=== PATIENT | male | born 1965 | race Caucasian/White ===

== ENCOUNTER → 2017-10-20 15:07 | Outpatient (REF) | payer MEDICAID, SELFPAY ==
[2017-10-20 17:36] LABS: Amphetamine/Metha Screen,Urine Negative ng/mL (<1000); Barbiturates Screen,Urine Negative ng/mL (<200); Benzodiazepines Screen,Urine Negative ng/mL (200); Cannabinoid Screen,Urine Positive ng/mL (<50); Cocaine Screen,Urine Negative ng/g (<300); Methadone Screen,Urine Negative ng/mL (<300); Opiate Screen,Urine Positive ng/mL (<300); Phencyclidine Screen,Urine Negative ng/mL (<25)
== END ==
LOC: LAB 15:07
PROVIDERS: Visit Provider Emergency Medicine
DX: Z79.899 Other long term (current) drug therapy (principal)
CPT/HCPCS: 80305

== ENCOUNTER → 2017-11-04 13:49 | Outpatient (CLI) | payer MEDICAID, SELFPAY ==
--- NOTE | 2017-11-04 13:51 | XR_ITS ---
XR hip LT 2-3V w/pelvis HISTORY: Left hip pain ITS.REASON: Hip Pain ORDERING PHYSICIAN: Jaxson Iniguez MD PATIENT AGE: 51 years COMPARISON: None FINDINGS: No fracture or dislocation is evident. No significant degenerative change. No lytic or blastic change. Unremarkable soft tissues. There is minimal sclerosis of the SI joint on the left superiorly IMPRESSION: 1. Negative left hip. 2. Minimal sclerosis left SI joint superiorly
--- NOTE | 2017-11-04 13:51 | MR_ITS ---
MR lumbar spine wo con, MR 3-d myelogram/MRCP HISTORY: Low back pain with left-sided sciatica, left lower extremity pain radiating to the foot ORDERING PHYSICIAN: Jaxson Iniguez MD PATIENT AGE: 51 years COMPARISON: 06/05/2014 TECHNIQUE: Standard multiplanar multiecho sequences are performed without contrast. 3-D MIP and myelographic images are also rendered and reviewed FINDINGS: There is normal alignment. There is slight reversal of the lumbar lordosis. The spinal cord ends at the L1 level. There is multilevel thoracic and lumbar spondylosis. T11-T12, T12-L1: Mild degenerative disc disease. L1-L2: Degenerative disc disease with bulging disc eccentric to the left with mild left-sided foraminal narrowing L2-L3: Degenerative disc disease with mild bulging disc. L3-L4: Degenerative disc disease with bulging disc and facet and ligamentum flavum hypertrophy with moderate bilateral foraminal narrowing greater on the right. There is borderline narrowing of the canal. L4-5: Degenerative disc disease with bulging disc slightly eccentric toward the right. Is bilateral foraminal narrowing slightly greater on the right. Facet and ligamentum hypertrophy also present. There is narrowing of the canal at this level at 10 mm. L5-S1: Mild bulging disc slightly eccentric towards the left with facet hypertrophic change with moderate bilateral foraminal narrowing slightly greater on the left. IMPRESSION: 1. Multilevel lumbar spondylosis as detailed above with degenerative disc disease, bulging disc, and facet and ligamentum flavum hypertrophy with resultant foraminal narrowing .. Please see above for detailed description at each level. There is narrowing of the canal at L4-5. 2. No disc herniation. 3. No significant change from 06/05/2014
== END ==
PROVIDERS: Family Provider Emergency Medicine; PCP Emergency Medicine; Visit Provider Emergency Medicine
DX: M25.552 Pain in left hip (principal); M54.42 Lumbago with sciatica, left side; G89.29 Other chronic pain
CPT/HCPCS: 72148; 73502; 76376

== ENCOUNTER → 2017-12-14 15:30 | Outpatient (REF) | payer MEDICAID, SELFPAY ==
[2017-12-14 20:08] LABS: Amphetamine/Metha Screen,Urine Negative ng/mL (<1000); Barbiturates Screen,Urine Negative ng/mL (<200); Benzodiazepines Screen,Urine Negative ng/mL (200); Cannabinoid Screen,Urine Positive ng/mL (<50); Cocaine Screen,Urine Negative ng/g (<300); Methadone Screen,Urine Negative ng/mL (<300); Opiate Screen,Urine Negative ng/mL (<300); Phencyclidine Screen,Urine Negative ng/mL (<25)
== END ==
LOC: LAB 15:30
PROVIDERS: Visit Provider Emergency Medicine
DX: Z79.899 Other long term (current) drug therapy (principal)
CPT/HCPCS: 80305

== ENCOUNTER → 2018-01-11 15:48 | Outpatient (REF) | payer MEDICAID, SELFPAY ==
[2018-01-11 20:49] LABS: Amphetamine/Metha Screen,Urine Negative ng/mL (<1000); Barbiturates Screen,Urine Negative ng/mL (<200); Benzodiazepines Screen,Urine Negative ng/mL (200); Cannabinoid Screen,Urine Positive ng/mL (<50); Cocaine Screen,Urine Negative ng/g (<300); Methadone Screen,Urine Negative ng/mL (<300); Opiate Screen,Urine Positive ng/mL (<300); Phencyclidine Screen,Urine Negative ng/mL (<25)
== END ==
LOC: LAB 15:48
PROVIDERS: Visit Provider Emergency Medicine
DX: Z79.899 Other long term (current) drug therapy (principal)
CPT/HCPCS: 80305

== ENCOUNTER → 2018-02-07 15:10 | Outpatient (REF) | payer MEDICAID, SELFPAY ==
[2018-02-07 18:19] LABS: Amphetamine/Metha Screen,Urine Negative ng/mL (<1000); Barbiturates Screen,Urine Negative ng/mL (<200); Benzodiazepines Screen,Urine Positive ng/mL (200); Cannabinoid Screen,Urine Positive ng/mL (<50); Cocaine Screen,Urine Negative ng/g (<300); Methadone Screen,Urine Negative ng/mL (<300); Opiate Screen,Urine Negative ng/mL (<300); Phencyclidine Screen,Urine Negative ng/mL (<25)
== END ==
LOC: LAB 15:10
PROVIDERS: Visit Provider Emergency Medicine
DX: Z79.899 Other long term (current) drug therapy (principal)
CPT/HCPCS: 80305

== ENCOUNTER → 2018-03-13 15:44 | Outpatient (REF) | payer MEDICAID, SELFPAY ==
[2018-03-13 21:52] LABS: Amphetamine/Metha Screen,Urine Negative ng/mL (<1000); Barbiturates Screen,Urine Negative ng/mL (<200); Benzodiazepines Screen,Urine Positive ng/mL (200); Cannabinoid Screen,Urine Positive ng/mL (<50); Cocaine Screen,Urine Negative ng/g (<300); Methadone Screen,Urine Negative ng/mL (<300); Opiate Screen,Urine Negative ng/mL (<300); Phencyclidine Screen,Urine Negative ng/mL (<25)
== END ==
LOC: LAB 15:44
PROVIDERS: Visit Provider Emergency Medicine
DX: Z79.899 Other long term (current) drug therapy (principal)
CPT/HCPCS: 80305

== ENCOUNTER → 2018-04-10 14:56 | Outpatient (REF) | payer MEDICAID, SELFPAY ==
[2018-04-10 19:31] LABS: Amphetamine/Metha Screen,Urine Negative ng/mL (<1000); Barbiturates Screen,Urine Negative ng/mL (<200); Benzodiazepines Screen,Urine Positive ng/mL (<200); Cannabinoid Screen,Urine Positive ng/mL (<50); Cocaine Screen,Urine Negative ng/mL (<300); Methadone Screen,Urine Negative ng/mL (<300); Opiate Screen,Urine Negative ng/mL (<300); Phencyclidine Screen,Urine Negative ng/mL (<25)
== END ==
LOC: LAB 14:56
PROVIDERS: Visit Provider Emergency Medicine
DX: Z79.899 Other long term (current) drug therapy (principal)
CPT/HCPCS: 80305

== ENCOUNTER → 2018-05-01 13:52 | Outpatient (REF) | payer MEDICAID, SELFPAY ==
[2018-05-01 17:43] LABS: Amphetamine/Metha Screen,Urine Negative ng/mL (<1000); Barbiturates Screen,Urine Negative ng/mL (<200); Benzodiazepines Screen,Urine Positive ng/mL (<200); Cannabinoid Screen,Urine Positive ng/mL (<50); Cocaine Screen,Urine Negative ng/mL (<300); Methadone Screen,Urine Negative ng/mL (<300); Opiate Screen,Urine Negative ng/mL (<300); Phencyclidine Screen,Urine Negative ng/mL (<25)
== END ==
LOC: LAB 13:52
PROVIDERS: Visit Provider Emergency Medicine
DX: Z79.899 Other long term (current) drug therapy (principal)
CPT/HCPCS: 80305

== ENCOUNTER → 2018-05-31 13:33 | Outpatient (REF) | payer MEDICAID, SELFPAY ==
[2018-05-31 19:30] LABS: Amphetamine/Metha Screen,Urine Negative ng/mL (<1000); Barbiturates Screen,Urine Negative ng/mL (<200); Benzodiazepines Screen,Urine Negative ng/mL (<200); Cannabinoid Screen,Urine Negative ng/mL (<50); Cocaine Screen,Urine Negative ng/mL (<300); Methadone Screen,Urine Negative ng/mL (<300); Opiate Screen,Urine Positive ng/mL (<300); Phencyclidine Screen,Urine Negative ng/mL (<25)
== END ==
LOC: LAB 13:33
PROVIDERS: Visit Provider Emergency Medicine
DX: Z79.899 Other long term (current) drug therapy (principal)
CPT/HCPCS: 80305

== ENCOUNTER → 2018-06-28 15:37 | Outpatient (REF) | payer MEDICAID, SELFPAY ==
[2018-06-28 18:26] LABS: Amphetamine/Metha Screen,Urine Negative ng/mL (<1000); Barbiturates Screen,Urine Negative ng/mL (<200); Benzodiazepines Screen,Urine Positive ng/mL (<200); Cannabinoid Screen,Urine Positive ng/mL (<50); Cocaine Screen,Urine Negative ng/mL (<300); Methadone Screen,Urine Negative ng/mL (<300); Opiate Screen,Urine Positive ng/mL (<300); Phencyclidine Screen,Urine Negative ng/mL (<25)
== END ==
LOC: LAB 15:37
PROVIDERS: Visit Provider Emergency Medicine
DX: Z79.899 Other long term (current) drug therapy (principal)
CPT/HCPCS: 80305

== ENCOUNTER → 2018-07-25 15:22 | Outpatient (CLI) | payer MEDICAID, SELFPAY | PROVIDERS: Visit Provider Emergency Medicine | DX: Z79.899 Other long term (current) drug therapy (principal) ==

== ENCOUNTER → 2018-08-25 17:52 | Outpatient (CLI) | payer MEDICAID, SELFPAY ==
[2018-08-25 19:36] LABS: Amphetamine/Metha Screen,Urine Negative ng/mL (<1000); Barbiturates Screen,Urine Negative ng/mL (<200); Benzodiazepines Screen,Urine Positive ng/mL (<200); Cannabinoid Screen,Urine Positive ng/mL (<50); Cocaine Screen,Urine Negative ng/mL (<300); Methadone Screen,Urine Negative ng/mL (<300); Opiate Screen,Urine Positive ng/mL (<300); Phencyclidine Screen,Urine Negative ng/mL (<25)
== END ==
PROVIDERS: Visit Provider Emergency Medicine
DX: Z79.899 Other long term (current) drug therapy (principal)
CPT/HCPCS: 80305

== ENCOUNTER → 2018-09-25 18:40 | Outpatient (CLI) | payer MEDICAID, SELFPAY ==
[2018-09-25 19:23] LABS: Amphetamine/Metha Screen,Urine Negative ng/mL (<1000); Barbiturates Screen,Urine Negative ng/mL (<200); Benzodiazepines Screen,Urine Negative ng/mL (<200); Cannabinoid Screen,Urine Positive ng/mL (<50); Cocaine Screen,Urine Negative ng/mL (<300); Methadone Screen,Urine Negative ng/mL (<300); Opiate Screen,Urine Negative ng/mL (<300); Phencyclidine Screen,Urine Negative ng/mL (<25)
[2018-10-04 12:11] LABS: Alprazolam Negative (Cutoff=100); Benzodiazepines Positive ng/mL (Cutoff=100); Clonazepam Positive (.); Flurazepam Negative (Cutoff=100); Lorazepam Negative (Cutoff=100); Midazolam Negative (Cutoff=100); Temazepam Negative (Cutoff=100); Triazolam Negative (Cutoff=100)
[2018-10-05 06:48] LABS: Clonazepam Confirm 196 ng/mL (Cutoff=100); Opiates Negative (Cutoff=100)
== END ==
PROVIDERS: Visit Provider Emergency Medicine
DX: Z79.899 Other long term (current) drug therapy (principal)
CPT/HCPCS: 80305; 80346; 80361; 80365; G0480

== ENCOUNTER → 2018-10-25 19:22 | Outpatient (CLI) | payer MEDICAID, SELFPAY ==
[2018-10-25 20:30] LABS: Amphetamine/Metha Screen,Urine Negative ng/mL (<1000); Barbiturates Screen,Urine Negative ng/mL (<200); Benzodiazepines Screen,Urine Positive ng/mL (<200); Cannabinoid Screen,Urine Positive ng/mL (<50); Cocaine Screen,Urine Negative ng/mL (<300); Methadone Screen,Urine Negative ng/mL (<300); Opiate Screen,Urine Positive ng/mL (<300); Phencyclidine Screen,Urine Negative ng/mL (<25)
== END ==
PROVIDERS: Visit Provider Emergency Medicine
DX: Z79.899 Other long term (current) drug therapy (principal)
CPT/HCPCS: 80305

== ENCOUNTER → 2018-12-20 17:05 | Outpatient (CLI) | payer MEDICAID, SELFPAY ==
[2018-12-20 18:26] LABS: Amphetamine/Metha Screen,Urine Negative ng/mL (<1000); Barbiturates Screen,Urine Negative ng/mL (<200); Benzodiazepines Screen,Urine Positive ng/mL (<200); Cannabinoid Screen,Urine Positive ng/mL (<50); Cocaine Screen,Urine Negative ng/mL (<300); Methadone Screen,Urine Negative ng/mL (<300); Opiate Screen,Urine Negative ng/mL (<300); Phencyclidine Screen,Urine Negative ng/mL (<25)
[2018-12-27 11:19] LABS: Oxycodone (GC/MS) 1256 ng/mL (Cutoff=100)
[2018-12-27 12:20] LABS: Opiates Negative (Cutoff=100); Oxymorphone (GC/MS) 215 ng/mL (Cutoff=100)
== END ==
PROVIDERS: Visit Provider Emergency Medicine
DX: M54.9 Dorsalgia, unspecified (principal); Z79.899 Other long term (current) drug therapy
CPT/HCPCS: 80305; 80361; 80365; G0480

== ENCOUNTER → 2019-02-14 17:26 | Outpatient (CLI) | payer MEDICAID, SELFPAY ==
[2019-02-14 18:44] LABS: Amphetamine/Metha Screen,Urine Negative ng/mL (<1000); Barbiturates Screen,Urine Negative ng/mL (<200); Benzodiazepines Screen,Urine Positive ng/mL (<200); Cannabinoid Screen,Urine Positive ng/mL (<50); Cocaine Screen,Urine Negative ng/mL (<300); Methadone Screen,Urine Negative ng/mL (<300); Opiate Screen,Urine Positive ng/mL (<300); Phencyclidine Screen,Urine Negative ng/mL (<25)
== END ==
PROVIDERS: Visit Provider Emergency Medicine
DX: Z79.899 Other long term (current) drug therapy (principal)
CPT/HCPCS: 80305

== ENCOUNTER → 2019-04-13 17:54 | Outpatient (CLI) | payer MEDICAID, SELFPAY ==
[2019-04-13 20:29] LABS: Amphetamine/Metha Screen,Urine Negative ng/mL (<1000); Barbiturates Screen,Urine Negative ng/mL (<200); Benzodiazepines Screen,Urine Positive ng/mL (<200); Cannabinoid Screen,Urine Positive ng/mL (<50); Cocaine Screen,Urine Negative ng/mL (<300); Methadone Screen,Urine Negative ng/mL (<300); Opiate Screen,Urine Negative ng/mL (<300); Phencyclidine Screen,Urine Negative ng/mL (<25)
[2019-04-20 03:36] LABS: Oxycodone Positive (.); Oxymorphone Positive (.)
[2019-04-20 06:36] LABS: Oxycodone Confirm 1405 ng/mL (Cutoff=100); Oxymorphone Confirm 426 ng/mL (Cutoff=100)
== END ==
PROVIDERS: Visit Provider Emergency Medicine
DX: Z79.899 Other long term (current) drug therapy (principal)
CPT/HCPCS: 80305; 80365

== ENCOUNTER → 2019-06-13 17:45 | Outpatient (CLI) | payer MEDICAID, SELFPAY ==
[2019-06-13 19:57] LABS: Amphetamine/Metha Screen,Urine Negative ng/mL (<1000); Barbiturates Screen,Urine Negative ng/mL (<200); Benzodiazepines Screen,Urine Positive ng/mL (<200); Cannabinoid Screen,Urine Positive ng/mL (<50); Cocaine Screen,Urine Negative ng/mL (<300); Methadone Screen,Urine Negative ng/mL (<300); Opiate Screen,Urine Positive ng/mL (<300); Phencyclidine Screen,Urine Negative ng/mL (<25)
== END ==
PROVIDERS: Visit Provider Emergency Medicine
DX: Z79.899 Other long term (current) drug therapy (principal)
CPT/HCPCS: 80305

== ENCOUNTER → 2019-08-13 17:14 | Outpatient (CLI) | payer MEDICAID, SELFPAY ==
[2019-08-13 19:42] LABS: Amphetamine/Metha Screen,Urine Negative ng/mL (<1000); Barbiturates Screen,Urine Negative ng/mL (<200); Benzodiazepines Screen,Urine Positive ng/mL (<200); Cannabinoid Screen,Urine Positive ng/mL (<50); Cocaine Screen,Urine Negative ng/mL (<300); Methadone Screen,Urine Negative ng/mL (<300); Opiate Screen,Urine Negative ng/mL (<300); Phencyclidine Screen,Urine Negative ng/mL (<25)
[2019-08-22 10:10] LABS: Alprazolam Negative (Cutoff=100); Benzodiazepines Positive ng/mL (Cutoff=100); Clonazepam Positive (.); Flurazepam Negative (Cutoff=100); Lorazepam Negative (Cutoff=100); Midazolam Negative (Cutoff=100); Oxycodone Positive (.); Oxymorphone Positive (.); Temazepam Negative (Cutoff=100); Triazolam Negative (Cutoff=100)
[2019-08-22 12:19] LABS: Clonazepam Confirm 206 ng/mL (Cutoff=100); Oxycodone Confirm 455 ng/mL (Cutoff=100); Oxymorphone Confirm 352 ng/mL (Cutoff=100)
== END ==
PROVIDERS: Visit Provider Emergency Medicine
DX: Z79.899 Other long term (current) drug therapy (principal)
CPT/HCPCS: 80305; 80346; 80365

== ENCOUNTER → 2019-12-07 17:04 | Outpatient (CLI) | payer MEDICAID, SELFPAY ==
[2019-12-07 18:22] LABS: Amphetamine/Metha Screen,Urine Negative ng/ml (<1000); Barbiturates Screen,Urine Negative ng/ml (<200)
[2019-12-07 18:23] LABS: Benzodiazepines Screen,Urine Positive ng/ml (<200)
[2019-12-07 18:24] LABS: Cannabinoid Screen,Urine Positive ng/ml (<50); Cocaine Screen,Urine Negative ng/ml (<300)
[2019-12-07 18:25] LABS: Methadone Screen,Urine Negative ng/ml (<300); Opiate Screen,Urine Positive ng/ml (<300)
[2019-12-07 18:26] LABS: Phencyclidine Screen,Urine Negative ng/ml (<25)
== END ==
PROVIDERS: Visit Provider Emergency Medicine
DX: Z79.899 Other long term (current) drug therapy (principal)
CPT/HCPCS: 80305

== ENCOUNTER → 2021-01-07 17:40 | Outpatient (CLI) | payer MEDICAID, SELFPAY ==
[2021-01-07 18:23] LABS: Barbiturates Screen,Urine Negative ng/ml (<200)
[2021-01-07 18:25] LABS: Amphetamine/Metha Screen,Urine Negative ng/ml (<1000); Benzodiazepines Screen,Urine Positive ng/ml (<200)
[2021-01-07 18:26] LABS: Cannabinoid Screen,Urine Positive ng/ml (<50)
[2021-01-07 18:27] LABS: Cocaine Screen,Urine Negative ng/ml (<300); Methadone Screen,Urine Negative ng/ml (<300)
[2021-01-07 18:28] LABS: Opiate Screen,Urine Positive ng/ml (<300)
[2021-01-07 18:29] LABS: Phencyclidine Screen,Urine Negative ng/ml (<25)
== END ==
PROVIDERS: Visit Provider Emergency Medicine
DX: Z79.899 Other long term (current) drug therapy (principal); S51.002A Unspecified open wound of left elbow, initial encounter; L03.90 Cellulitis, unspecified
CPT/HCPCS: 80305; 87070; 87077; 87186; 87205

== ENCOUNTER → 2021-03-03 18:48 | Outpatient (CLI) | payer MEDICAID, SELFPAY ==
[2021-03-03 19:33] LABS: Benzodiazepines Screen,Urine Negative ng/ml (<200)
[2021-03-03 19:34] LABS: Amphetamine/Metha Screen,Urine Negative ng/ml (<1000); Barbiturates Screen,Urine Negative ng/ml (<200)
[2021-03-03 19:35] LABS: Cannabinoid Screen,Urine Positive ng/ml (<50)
[2021-03-03 19:36] LABS: Cocaine Screen,Urine Negative ng/ml (<300); Methadone Screen,Urine Negative ng/ml (<300)
[2021-03-03 19:37] LABS: Opiate Screen,Urine Negative ng/ml (<300)
[2021-03-03 19:38] LABS: Phencyclidine Screen,Urine Negative ng/ml (<25)
== END ==
PROVIDERS: Visit Provider Emergency Medicine
DX: Z79.899 Other long term (current) drug therapy (principal)
CPT/HCPCS: 80305

== ENCOUNTER → 2021-04-29 17:14 | Outpatient (CLI) | payer MEDICAID, SELFPAY ==
[2021-04-30 00:10] LABS: Amphetamine/Metha Screen,Urine Negative ng/ml (<1000); Barbiturates Screen,Urine Negative ng/ml (<200); Benzodiazepines Screen,Urine Negative ng/ml (<200); Cannabinoid Screen,Urine Positive ng/ml (<50); Cocaine Screen,Urine Negative ng/ml (<300); Methadone Screen,Urine Negative ng/ml (<300); Opiate Screen,Urine Positive ng/ml (<300); Phencyclidine Screen,Urine Negative ng/ml (<25)
== END ==
PROVIDERS: Visit Provider Emergency Medicine
DX: Z79.899 Other long term (current) drug therapy (principal)
CPT/HCPCS: 80305

== ENCOUNTER → 2021-06-24 17:31 | Outpatient (CLI) | payer MEDICARE, MEDICAID, SELFPAY ==
[2021-06-24 20:52] LABS: Amphetamine/Metha Screen,Urine Negative ng/ml (<1000)
[2021-06-24 20:53] LABS: Barbiturates Screen,Urine Negative ng/ml (<200); Cannabinoid Screen,Urine Positive ng/ml (<50)
[2021-06-24 20:54] LABS: Benzodiazepines Screen,Urine Negative ng/ml (<200)
[2021-06-24 20:55] LABS: Cocaine Screen,Urine Negative ng/ml (<300); Methadone Screen,Urine Negative ng/ml (<300)
[2021-06-24 20:56] LABS: Opiate Screen,Urine Negative ng/ml (<300)
[2021-06-24 20:58] LABS: Phencyclidine Screen,Urine Negative ng/ml (<25)
== END ==
PROVIDERS: Visit Provider Emergency Medicine
DX: M47.816 Spondylosis without myelopathy or radiculopathy, lumbar region (principal)
CPT/HCPCS: 80305

== ENCOUNTER → 2021-07-09 12:06 | Outpatient (CLI) | payer MEDICARE, MEDICAID, SELFPAY | PROVIDERS: PCP Emergency Medicine; Visit Provider Internal Medicine Cardiovascular Disease | DX: R06.00 Dyspnea, unspecified (principal); R42 Dizziness and giddiness; R00.0 Tachycardia, unspecified; I10 Essential (primary) hypertension; J44.9 Chronic obstructive pulmonary disease, unspecified; Z72.0 Tobacco use | CPT/HCPCS: 93225 ==

== ENCOUNTER → 2021-07-17 13:11 | Outpatient (CLI) | payer MEDICARE, MEDICAID, SELFPAY ==
[2021-07-17 13:59] LABS: Anion Gap 11.7 mEq/L (5-15); Blood Urea Nitrogen 9 mg/dl (9-20); Calcium 9.3 mg/dl (8.4-10.2); Carbon Dioxide 28 mmol/L (22.0-30.0); Chloride 99 mmol/L (98-107); Estimated Glomerular Filt Rate 139 ml/min (>60); GFR (African American) 168 ML/MIN (>60); Glucose 105 mg/dl (74-100); Potassium 4.7 mmoL/L (3.5-5.1); Sodium 134 mmol/L (136-145)
[2021-07-17 14:08] LABS: NT Pro Brain Natriuretic Pep. 89.2 pg/mL (0-125)
== END ==
PROVIDERS: Visit Provider Internal Medicine Cardiovascular Disease
DX: E66.3 Overweight (principal); I10 Essential (primary) hypertension; J44.9 Chronic obstructive pulmonary disease, unspecified; R00.0 Tachycardia, unspecified; R06.00 Dyspnea, unspecified; R42 Dizziness and giddiness; Z72.0 Tobacco use; Z68.34 Body mass index [BMI] 34.0-34.9, adult
CPT/HCPCS: 36415; 80048; 83880

== ENCOUNTER → 2021-08-12 08:49 | Outpatient (CLI) | payer MEDICARE, MEDICAID, SELFPAY ==
--- NOTE | 2021-08-12 08:51 | CA_ITS ---
APPROVED REPORT EXAM: Comprehensive 2D, Doppler, and color-flow Echocardiogram Rn Nursery: MARIYA Jenkins, RVS Ht: 6 ft 0 in Wt: 252lbs BSA: 2.35 BP: 148/79 mmHg Indications: SOB, Dizziness, ABN EKG, Smoker, COPD Echo Enhancing Agent Comments: Poor acoustics throughout exam. 2D Dimensions LVDs 3.01 cm LA Volume 48.00 mL LA Volume Index 20.40 mL/m2 (M/F) 16-34 M-Mode Dimensions RVDd 3.62 cm (0.9-2.6) LA Diam 3.31 cm (1.9-4.0) LVDd 4.00 cm (3.5-5.7) Ao Diam 3.11 cm (2.0-3.7) LVDs 2.21 cm (3.5-5.7) IVSd 0.96 cm (0.6-1.1) PWd 1.25 cm (0.6-1.1) EF (Teich) 69.50% EPSs 0.36 cm FS 38.30% EDV (Teich) 53.70 mL TAPSE 2.42 (<1.7) ESV (Teich) 16.40 mL LV Diastology E Decel Time 220.00 (160-240 msec) E/A Ratio 0.87 MED E' 7.90 (< 7 cm/sec) MED A' 9.20 cm/s E'/MED E' Ratio 10.66 (>14) LAT E' 10.60 (<10 cm/sec) LAT A' 8.50 cm/s E/LAT E' Ratio 7.94 (>14) Aortic Valve LVOT Max 99.00 (70-110 cm/s) LVOT VTI 21.67 cm AoV Peak Robert. 117.00 (50-130 cm/s) AO Peak GR. 5.50 mmHg AO Mean GR. 2.80 (<5 mmHg) AO VTI 25.12 (18-25 cm) Mitral Valve MV A Velocity 97.00 (40-130 cm/s) E/A Ratio 0.87 MV Decel. Time 220.00 (160-240 ms) MV Mean Gr. 2.30 (<2mmHg) Pulmonary Valve PV Peak Velocity 84.00 (50-150 cm/s) Tricuspid Valve TR P. Velocity 213.00 cm/s RAP Estimate 10.00 mmHg RVSP 28.10 mmHg Left Ventricle Is mildly enlarged, left ventricle is normal size, mild concentric left ventricular hypertrophy, visually estimated ejection fraction 55% with no regional wall motion abnormality. Grade 1 diastolic dysfunction seen without tissue Doppler evidence of raise left atrial pressure. Right Ventricle Right atrium and right ventricle are mildly enlarged with normal contractility. Aortic Valve Aortic valve is minimally thickened and fibrosed there is no aortic stenosis or aortic insufficiency. Mitral Valve Mitral valve grossly normal, there is trace mitral regurgitation. Tricuspid Valve Tricuspid valve grossly normal, there is trace tricuspid regurgitation, tricuspid regurgitation jet velocity is inadequate for calculation of the right ventricular systolic pressure. Pulmonic Valve Pulmonic valve is poorly visualized. Great Vessels Aortic root is normal size. Inferior vena cava is normal size with normal inspiratory collapse. Pericardium No significant pericardial effusion noted. Conclusion 1. Mild biatrial enlargement, normal left ventricular size, mild concentric left ventricular hypertrophy, visually estimated ejection fraction 55% with no regional wall motion abnormality, grade 1 diastolic dysfunction seen without tissue Doppler evidence of raise left atrial pressure. 2. Mildly enlarged right ventricle with normal contractility. 3. Trace mitral and tricuspid regurgitation. 4. No significant pericardial effusion noted 5. Inferior vena cava is normal size with normal inspiratory collapse. Electronically signed by : Isacc Kruger MD 08/13/2021 15:57:55
--- NOTE | 2021-08-12 09:36 | CT_ITS ---
PROCEDURE: CT CHEST WO CON CLINICAL INDICATION: tobacco use COMPARISON: CR CXR CHEST(2 VIEWS-NOT PORTABLE) from 02/06/2014 TECHNIQUE: Axial images obtained with sagittal and coronal reformats. All CT scans at the facility use one or more dose reduction, viz: automated exposure control, ma/kV adjustment per patient size (including targeted exams where dose is matched to indication, i.e. head), or iterative reconstruction technique. FINDINGS: HEART AND MEDIASTINAL STRUCTURES: There is scattered small mediastinal lymph nodes nonspecific. Coronary artery calcifications. LUNGS AND PLEURAL SPACES: COPD changes with paraseptal emphysema. There are scattered areas of scarring. This is most prominent in the right upper lobe. A calcified nodules present in the right upper lobe laterally. Patchy area of increased density is present in the right lower lobe at the azygos esophageal recess area and may represent an area infiltrate or fibrotic change. There is some sub adjacent cystic changes posterior to this area increased density with the largest cystic area measuring approximately 9 mm. Faint ground-glass attenuation is present in the left upper lobe inferiorly. No suspicious pulmonary nodules. No effusions BONY STRUCTURES: Old bilateral rib fractures. Mild lower thoracic scoliosis convex right. UPPER ABDOMEN: Gallbladder wall appears slightly thickened ADDITIONAL FINDINGS: Mild gynecomastia on the right IMPRESSION: 1. COPD with paraseptal emphysematous changes and scattered areas of scarring. 2. Faint area of increased density in the as ago esophageal recess with some sub adjacent cystic changes/small areas of cavitation. These findings may be post inflammatory or infectious. Small areas of cavitation could be post inflammatory or infectious. Suggest 3 month follow-up to confirm stability. Recommend comparison with old studies if available. None are available at this institution.. 3. Faint ground-glass attenuation in the left upper lobe. This is nonspecific and could be infectious or inflammatory in nature. This may also be seen with small airway disease. Follow-up recommended. 4. Other nonacute findings as described above Dictated by: Robbie Valiente MD 08/13/2021 09:49 Robbie Valiente MD in [place] 08/13/2021 09:49
== END ==
PROVIDERS: PCP Emergency Medicine; Visit Provider Internal Medicine Cardiovascular Disease
DX: E66.3 Overweight (principal); I10 Essential (primary) hypertension; J44.9 Chronic obstructive pulmonary disease, unspecified; R00.0 Tachycardia, unspecified; R06.00 Dyspnea, unspecified; R42 Dizziness and giddiness; Z72.0 Tobacco use; Z68.32 Body mass index [BMI] 32.0-32.9, adult
CPT/HCPCS: 71250; 93306

== ENCOUNTER → 2021-08-18 18:59 | Outpatient (CLI) | payer MEDICARE, MEDICAID, SELFPAY ==
[2021-08-18 19:35] LABS: Amphetamine/Metha Screen,Urine Negative ng/ml (<1000)
[2021-08-18 19:36] LABS: Barbiturates Screen,Urine Negative ng/ml (<200)
[2021-08-18 19:37] LABS: Benzodiazepines Screen,Urine Negative ng/ml (<200); Cannabinoid Screen,Urine Positive ng/ml (<50)
[2021-08-18 19:38] LABS: Cocaine Screen,Urine Negative ng/ml (<300); Methadone Screen,Urine Negative ng/ml (<300)
[2021-08-18 19:39] LABS: Opiate Screen,Urine Positive ng/ml (<300)
[2021-08-18 19:40] LABS: Phencyclidine Screen,Urine Negative ng/ml (<25)
== END ==
PROVIDERS: Visit Provider Emergency Medicine
DX: M47.816 Spondylosis without myelopathy or radiculopathy, lumbar region (principal)
CPT/HCPCS: 80305

== ENCOUNTER 2021-09-11 08:50 | Day surgery (SDC) | payer MEDICARE, MEDICAID, SELFPAY ==
[2021-09-11] VITALS (12 sets, daily range): BP systolic 89–139; BP diastolic 48–96; PULSE 59–80; RESP 16–18; TEMP 36.4–36.8; O2SAT 93–100; BMI 32.1
--- NOTE | 2021-09-11 07:19 | IR_ITS ---
APPROVED REPORT Patient Location: Outpatient Machine Rough Rounder: REGGIE Zavala RT (R) PROCEDURES Left heart catheterization Left ventriculogram Selective coronary angiogram INDICATION Abnormal CT calcium score, Coronary artery disease, Angina pectoris Informed consent was obtained prior to the procedure. COMPLICATIONS none Estimated Blood Loss: Less than 10 mls TECHNIQUE One percent lidocaine used to anesthetize the right anterior aspect of the wrist. The right radial artery was accessed via the Seldinger technique. A 6 Slovenian sheath was placed in the right radial artery. 2.5 mg of verapamil, 800 mcg of nitroglycerin, 1mg Lidocaine and 5000 U Heparin were given through the arterial sheath. The trap catheter was also used to perform left heart catheterization, left ventriculogram and selective coronary angiogram. At the end of the procedure the sheath was removed good hemostasis was achieved using Traclet band, patient was transferred to the postop holding area in stable condition. ANGIOGRAPHIC RESULTS The left main artery Normal The left anterior descending artery Mild 10% luminal irregularities The circumflex artery Nondominant with mid vessel 20% and 30% stenoses The right coronary artery Dominant normal The LOVING ventriculogram reveals Preserved 55% The left ventricular end-diastolic pressure 15 mmHg IMPRESSION Mild nonflow limiting coronary disease Preserved ejection fraction Borderline elevated LVEDP PLAN 1. Continue medical management with risk factor modification Electronically signed by : Joe Dumont MD 09/11/2021 11:58:28
[2021-09-11 09:50] LABS: Basophils # 0.1 K/mm3 (0-0.2); Basophils % 1.3 % (0.1-2.0); Eosinophils # 0.4 K/mm3 (0.0-0.4); Eosinophils % 5.6 % (0.1-12.0); Hematocrit 41.2 % (42.0-52.0); Hemoglobin 13.7 g/dL (14.1-18.0); Lymphocytes # 2.9 K/mm3 (0.7-4.5); Lymphocytes % 40.1 % (10-50); Mean Corpuscular HGB Conc 33.4 g/dL (31.8-35.4); Mean Corpuscular Hemoglobin 32.1 pg (27.0-31.2); Mean Corpuscular Volume 96.2 fl (80-94); Monocytes # 0.6 K/mm3 (0.1-1.0); Monocytes % 8.3 % (1.7-9.3); Neutrophils # 3.3 K/mm3 (1.8-7.8); Neutrophils % 44.8 % (37.0-80.0); Platelet Count 320 K/mm3 (142-424); Red Blood Count 4.28 M/mm3 (4.60-6.20); Red Cell Distribution Width 14.4 % (11.5-17.5); White Blood Count 7.3 K/mm3 (4.8-10.8)
[2021-09-11 09:52] LABS: Chloride 100 mmol/L (98-107); Sodium 137 mmol/L (136-145)
[2021-09-11 09:55] LABS: Blood Urea Nitrogen 20 mg/dl (9-20); Creatinine Clearance Estimated 124 mL/min (50-200); Estimated Glomerular Filt Rate 77 ml/min (>60); GFR (African American) 93 ML/MIN (>60); Potassium 4.3 mmoL/L (3.5-5.1)
[2021-09-11 09:56] LABS: Anion Gap 16.3 mEq/L (5-15); Calcium 9.8 mg/dl (8.4-10.2); Carbon Dioxide 25 mmol/L (22.0-30.0); Glucose 99 mg/dl (74-100)
== END 2021-09-11 14:00 | disposition home or self-care (01) ==
LOC: CATHLAB 08:51
PROVIDERS: PCP Emergency Medicine; Visit Provider Internal Medicine
DX: I25.110 Atherosclerotic heart disease of native coronary artery with unstable angina pectoris (principal); I10 Essential (primary) hypertension; R06.00 Dyspnea, unspecified; R42 Dizziness and giddiness; Z72.0 Tobacco use; Z71.6 Tobacco abuse counseling
CPT/HCPCS: 80048; 85025; 93458; 99152; C1725; C1769; J1644; Q9967

== ENCOUNTER → 2021-10-16 17:17 | Outpatient (CLI) | payer MEDICARE, MEDICAID, SELFPAY ==
[2021-10-16 19:25] LABS: Amphetamine/Metha Screen,Urine Negative ng/ml (<1000); Barbiturates Screen,Urine Negative ng/ml (<200)
[2021-10-16 19:26] LABS: Benzodiazepines Screen,Urine Negative ng/ml (<200)
[2021-10-16 19:27] LABS: Cocaine Screen,Urine Negative ng/ml (<300)
[2021-10-16 19:28] LABS: Methadone Screen,Urine Negative ng/ml (<300)
[2021-10-16 19:29] LABS: Opiate Screen,Urine Negative ng/ml (<300); Phencyclidine Screen,Urine Negative ng/ml (<25)
[2021-10-16 19:37] LABS: Cannabinoid Screen,Urine Positive ng/ml (<50)
== END ==
PROVIDERS: Visit Provider Emergency Medicine
DX: M47.816 Spondylosis without myelopathy or radiculopathy, lumbar region (principal)
CPT/HCPCS: 80305

== ENCOUNTER → 2021-12-03 14:43 | Outpatient (CLI) | payer MEDICARE, MEDICAID, SELFPAY ==
--- NOTE | 2021-12-03 14:43 | US_ITS ---
FINAL REPORT CLINICAL HISTORY: leg leg mass-- pt had a fx 1994 this palp area has been since then it is golf ball size FINDINGS: US EXTREMITY, NONVASCULAR, LIMITED, ANATOMIC SPECIFIC Limited sonographic images were obtained of the left lateral ankle. At the area of a palpable abnormality is a 3.7 cm ovoid heterogeneous solid soft tissue mass. There may be mild internal flow. No cystic components are seen. IMPRESSION: Solid soft tissue mass at the area of interest. Pre and post-contrast MRI could better characterize. Reviewed, Interpreted and Dictated by Azar Zayas MD Transcribed by Ho Martinez Authenticated by Azar Zayas MD on 12/03/2021 04:52:18 PM [facility]
== END ==
PROVIDERS: PCP Emergency Medicine; Visit Provider Emergency Medicine
DX: R22.42 Localized swelling, mass and lump, left lower limb (principal)
CPT/HCPCS: 76882

== ENCOUNTER → 2022-07-27 12:42 | Outpatient (CLI) | payer MEDICARE, MEDICAID, SELFPAY ==
[2022-07-27 21:41] LABS: Amphetamine/Metha Screen,Urine Negative ng/ml (<1000); Barbiturates Screen,Urine Negative ng/ml (<200)
[2022-07-27 21:43] LABS: Benzodiazepines Screen,Urine Negative ng/ml (<200)
[2022-07-27 21:44] LABS: Cannabinoid Screen,Urine Positive ng/ml (<50); Cocaine Screen,Urine Negative ng/ml (<300)
[2022-07-27 21:45] LABS: Methadone Screen,Urine Negative ng/ml (<300)
[2022-07-27 21:46] LABS: Opiate Screen,Urine Negative ng/ml (<300); Phencyclidine Screen,Urine Negative ng/ml (<25)
== END ==
PROVIDERS: PCP Emergency Medicine; Visit Provider Emergency Medicine
DX: M47.816 Spondylosis without myelopathy or radiculopathy, lumbar region (principal)
CPT/HCPCS: 80305

== ENCOUNTER → 2022-09-20 21:35 | Outpatient (CLI) | payer MEDICARE, MEDICAID, SELFPAY ==
[2022-09-20 18:56] LABS: Amphetamine/Metha Screen,Urine Negative ng/ml (<1000)
[2022-09-20 18:57] LABS: Barbiturates Screen,Urine Negative ng/ml (<200); Benzodiazepines Screen,Urine Positive ng/ml (<200)
[2022-09-20 18:58] LABS: Cannabinoid Screen,Urine Positive ng/ml (<50)
[2022-09-20 18:59] LABS: Cocaine Screen,Urine Negative ng/ml (<300); Methadone Screen,Urine Negative ng/ml (<300)
[2022-09-20 19:00] LABS: Opiate Screen,Urine Positive ng/ml (<300)
[2022-09-20 19:01] LABS: Phencyclidine Screen,Urine Negative ng/ml (<25)
== END ==
PROVIDERS: Visit Provider Emergency Medicine
DX: M47.816 Spondylosis without myelopathy or radiculopathy, lumbar region (principal)
CPT/HCPCS: 80305

== ENCOUNTER → 2022-11-16 23:00 | Outpatient (CLI) | payer MEDICARE, MEDICAID, SELFPAY ==
[2022-11-17 17:08] LABS: Amphetamine/Metha Screen,Urine Negative ng/ml (<1000); Barbiturates Screen,Urine Negative ng/ml (<200)
[2022-11-17 23:43] LABS: Benzodiazepines Screen,Urine Positive ng/ml (<200); Cannabinoid Screen,Urine Positive ng/ml (<50); Cocaine Screen,Urine Negative ng/ml (<300); Methadone Screen,Urine Negative ng/ml (<300); Opiate Screen,Urine Positive ng/ml (<300); Phencyclidine Screen,Urine Negative ng/ml (<25)
== END ==
PROVIDERS: PCP Emergency Medicine; Visit Provider Emergency Medicine
DX: M47.816 Spondylosis without myelopathy or radiculopathy, lumbar region (principal)
CPT/HCPCS: 80305

== ENCOUNTER → 2023-01-11 23:20 | Outpatient (CLI) | payer MEDICARE, MEDICAID, SELFPAY ==
[2023-01-11 18:00] LABS: Basophils # 0.1 K/mm3 (0-0.2); Basophils % 1.2 % (0.1-2.0); Eosinophils # 0.3 K/mm3 (0.0-0.4); Eosinophils % 2.5 % (0.1-12.0); Hematocrit 44.8 % (42.0-52.0); Hemoglobin 14.7 g/dL (14.1-18.0); Lymphocytes # 3.7 K/mm3 (0.7-4.5); Lymphocytes % 32.2 % (10-50); Mean Corpuscular HGB Conc 32.8 g/dL (31.8-35.4); Mean Corpuscular Hemoglobin 31.8 pg (27.0-31.2); Mean Corpuscular Volume 96.8 fl (80-94); Mean Platelet Volume 9.8 fl (7.4-10.4); Monocytes # 0.9 K/mm3 (0.1-1.0); Monocytes % 7.7 % (1.7-9.3); Neutrophils # 6.5 K/mm3 (1.8-7.8); Neutrophils % 56.4 % (37.0-80.0); Platelet Count 286 K/mm3 (142-424); Red Blood Count 4.63 M/mm3 (4.60-6.20); Red Cell Distribution Width 13.9 % (11.5-17.5); White Blood Count 11.6 K/mm3 (4.8-10.8)
[2023-01-11 18:31] LABS: Alanine Aminotransferase 20 U/L (12-78); Albumin Level 4.9 g/dl (3.5-5.0); Albumin/Globulin Ratio 1.4 (1.1-1.8); Alkaline Phosphatase 52 U/L (38-126); Anion Gap 18.2 mEq/L (5-15); Aspartate Amino Transferase 26 U/L (17-59); Bilirubin,Total 0.6 mg/dl (0.2-1.3); Blood Urea Nitrogen 12 mg/dl (9-20); Calcium 9.5 mg/dl (8.4-10.2); Carbon Dioxide 23 mmol/L (22.0-30.0); Chloride 100 mmol/L (98-107); Cholesterol 115 mg/dl (140-200); Estimated Glomerular Filt Rate 86 ml/min (>60); GFR (African American) 105 ML/MIN (>60); Globulin 3.4 g/dL (1.3-3.2); Glucose 95 mg/dl (74-100); HDL Cholesterol 38 mg/dl (40-60); Potassium 4.2 mmoL/L (3.5-5.1); Sodium 137 mmol/L (136-145); Total Protein,Serum 8.3 g/dl (6.3-8.2); Triglycerides 128 mg/dl (30-150); VLDL Cholesterol 26 mg/dL (0-40)
[2023-01-11 18:40] LABS: Amphetamine/Metha Screen,Urine Negative ng/ml (<1000); Phencyclidine Screen,Urine Negative ng/ml (<25)
[2023-01-11 18:41] LABS: Opiate Screen,Urine Negative ng/ml (<300)
[2023-01-11 18:42] LABS: Barbiturates Screen,Urine Negative ng/ml (<200); Benzodiazepines Screen,Urine Negative ng/ml (<200)
[2023-01-11 18:43] LABS: Direct LDL Cholesterol 57.97 mg/dL (100-129)
[2023-01-11 18:43] LABS: Cannabinoid Screen,Urine Positive ng/ml (<50)
[2023-01-11 18:44] LABS: Cocaine Screen,Urine Negative ng/ml (<300); Methadone Screen,Urine Negative ng/ml (<300)
[2023-01-11 18:52] LABS: 25-OH Vitamin D, Total 53.8 ng/mL (30-100)
[2023-01-11 18:53] LABS: T4 (Thyroxine) 10.2 ug/dl (5.53-11.0)
[2023-01-11 19:06] LABS: Prostate Specific Ag Screen 1.6 ng/ml (0.0-4.0); Thyroid Stimulating Hormone 1.83 uIU/mL (0.465-4.68)
== END ==
PROVIDERS: PCP Emergency Medicine; Visit Provider Emergency Medicine
DX: M47.816 Spondylosis without myelopathy or radiculopathy, lumbar region (principal); I10 Essential (primary) hypertension; Z12.5 Encounter for screening for malignant neoplasm of prostate; E55.9 Vitamin D deficiency, unspecified
CPT/HCPCS: 80053; 80061; 80305; 82306; 84436; 84443; 85025; G0103

== ENCOUNTER → 2023-05-04 23:40 | Outpatient (CLI) | payer MEDICARE, MEDICAID, SELFPAY | PROVIDERS: PCP Emergency Medicine; Visit Provider Emergency Medicine | DX: M47.816 Spondylosis without myelopathy or radiculopathy, lumbar region (principal) ==

== ENCOUNTER → 2023-06-29 01:00 | Outpatient (CLI) | payer MEDICARE, MEDICAID, SELFPAY ==
[2023-06-29 20:48] LABS: Amphetamine/Metha Screen,Urine Negative ng/ml (<1000)
[2023-06-29 20:49] LABS: Barbiturates Screen,Urine Negative ng/ml (<200)
[2023-06-29 20:50] LABS: Benzodiazepines Screen,Urine Positive ng/ml (<200)
[2023-06-29 20:51] LABS: Cannabinoid Screen,Urine Negative ng/ml (<50); Cocaine Screen,Urine Negative ng/ml (<300)
[2023-06-29 20:52] LABS: Methadone Screen,Urine Negative ng/ml (<300)
[2023-06-29 20:53] LABS: Opiate Screen,Urine Negative ng/ml (<300); Phencyclidine Screen,Urine Negative ng/ml (<25)
== END ==
PROVIDERS: PCP Nurse Practitioner Family; Visit Provider Nurse Practitioner Family
DX: M47.816 Spondylosis without myelopathy or radiculopathy, lumbar region (principal); Z79.899 Other long term (current) drug therapy
CPT/HCPCS: 80305

== ENCOUNTER → 2023-08-26 12:00 | Outpatient (CLI) | payer MEDICARE, MEDICAID, SELFPAY ==
[2023-08-26 20:22] LABS: Barbiturates Screen,Urine Negative ng/ml (<200)
[2023-08-26 20:23] LABS: Amphetamine/Metha Screen,Urine Negative ng/ml (<1000)
[2023-08-26 20:24] LABS: Benzodiazepines Screen,Urine Negative ng/ml (<200)
[2023-08-26 20:25] LABS: Cocaine Screen,Urine Negative ng/ml (<300)
[2023-08-26 20:26] LABS: Methadone Screen,Urine Negative ng/ml (<300); Opiate Screen,Urine Negative ng/ml (<300)
[2023-08-26 20:27] LABS: Phencyclidine Screen,Urine Negative ng/ml (<25)
[2023-08-26 22:21] LABS: Cannabinoid Screen,Urine Positive ng/ml (<50)
== END ==
PROVIDERS: PCP Nurse Practitioner Family; Visit Provider Emergency Medicine
DX: M51.16 Intervertebral disc disorders with radiculopathy, lumbar region (principal)
CPT/HCPCS: 80305

== ENCOUNTER 2023-12-14 18:31 | Outpatient (CLI) | payer MEDICARE, MEDICAID, SELFPAY ==
[2023-12-14 19:09] LABS: Basophils # 0.1 K/mm3 (0-0.2); Eosinophils # 0.3 K/mm3 (0.0-0.4); Eosinophils % 2.9 % (0.1-12.0); Hematocrit 43.2 % (42.0-52.0); Hemoglobin 14.3 g/dL (14.1-18.0); Lymphocytes # 3.7 K/mm3 (0.7-4.5); Lymphocytes % 34.4 % (10-50); Mean Corpuscular Hemoglobin 33.3 pg (27.0-31.2); Mean Corpuscular Volume 100.7 fl (80-94); Mean Platelet Volume 11.4 fl (7.4-10.4); Monocytes # 0.9 K/mm3 (0.1-1.0); Monocytes % 8.7 % (1.7-9.3); Neutrophils # 5.7 K/mm3 (1.8-7.8); Platelet Count 289 K/mm3 (142-424); Red Blood Count 4.29 M/mm3 (4.60-6.20); Red Cell Distribution Width 13.7 % (11.5-17.5); White Blood Count 10.8 K/mm3 (4.8-10.8)
[2023-12-14 19:30] LABS: Chloride 104 mmol/L (98-107); Sodium 136 mmol/L (136-145)
[2023-12-14 19:31] LABS: Potassium 4.2 mmoL/L (3.5-5.1)
[2023-12-14 19:33] LABS: Alanine Aminotransferase 22 U/L (12-78); Albumin Level 4.7 g/dl (3.5-5.0); Albumin/Globulin Ratio 1.4 (1.1-1.8); Alkaline Phosphatase 67 U/L (38-126); Anion Gap 14.2 mEq/L (5-15); Aspartate Amino Transferase 32 U/L (17-59); Bilirubin,Total 0.5 mg/dl (0.2-1.3); Blood Urea Nitrogen 10 mg/dl (9-20); Carbon Dioxide 22 mmol/L (22.0-30.0); Estimated Glomerular Filt Rate 138 ml/min (>60); GFR (African American) 167 ML/MIN (>60); Globulin 3.4 g/dL (1.3-3.2); Total Protein,Serum 8.1 g/dl (6.3-8.2)
[2023-12-14 19:34] LABS: Calcium 9.9 mg/dl (8.4-10.2); Glucose 86 mg/dl (74-100)
[2023-12-14 20:14] LABS: Hemoglobin A1C 5.7 % (4.0-6.0)
[2023-12-16 07:40] LABS: HIV Screen 4th Generation wRfx Non Reactive (Non Reactive)
[2023-12-17 15:51] LABS: HBsAg Screen Negative (Negative); HCV Ab Reactive (Non Reactive); Hep A Ab, IGM Negative (Negative); Hep B Core Ab, IgM Negative (Negative)
== END 2023-12-14 23:59 | disposition home or self-care (01) ==
LOC: LAB.DROPOF 18:31
PROVIDERS: PCP Internal Medicine; Visit Provider Internal Medicine
DX: R53.83 Other fatigue (principal); M54.50 Low back pain, unspecified; M54.16 Radiculopathy, lumbar region; I25.10 Atherosclerotic heart disease of native coronary artery without angina pectoris; E55.9 Vitamin D deficiency, unspecified; E66.9 Obesity, unspecified; F07.81 Postconcussional syndrome; F41.1 Generalized anxiety disorder; F43.10 Post-traumatic stress disorder, unspecified; F12.10 Cannabis abuse, uncomplicated; F10.90 Alcohol use, unspecified, uncomplicated; B19.20 Unspecified viral hepatitis C without hepatic coma; Z79.899 Other long term (current) drug therapy; Z11.4 Encounter for screening for human immunodeficiency virus [HIV]; Z68.30 Body mass index [BMI] 30.0-30.9, adult; E11.9 Type 2 diabetes mellitus without complications
CPT/HCPCS: 80053; 80074; 83036; 85025; 86703; G0432

== ENCOUNTER 2024-02-23 15:32 | Outpatient (CLI) | payer MEDICARE, MEDICAID, SELFPAY ==
[2024-02-23 16:37] LABS: Basophils % 0.6 % (0.1-2.0); Eosinophils # 0.1 K/mm3 (0.0-0.4); Eosinophils % 2.1 % (0.1-12.0); Hematocrit 41.4 % (42.0-52.0); Hemoglobin 13.5 g/dL (14.1-18.0); Lymphocytes # 1.4 K/mm3 (0.7-4.5); Lymphocytes % 23.3 % (10-50); Mean Corpuscular HGB Conc 32.5 g/dL (31.8-35.4); Mean Corpuscular Hemoglobin 32.5 pg (27.0-31.2); Mean Corpuscular Volume 99.9 fl (80-94); Mean Platelet Volume 9.9 fl (7.4-10.4); Monocytes # 0.4 K/mm3 (0.1-1.0); Monocytes % 6.1 % (1.7-9.3); Neutrophils % 67.9 % (37.0-80.0); Platelet Count 206 K/mm3 (142-424); Red Blood Count 4.15 M/mm3 (4.60-6.20); Red Cell Distribution Width 13.6 % (11.5-17.5); White Blood Count 5.9 K/mm3 (4.8-10.8)
[2024-02-23 16:59] LABS: Alanine Aminotransferase 24 U/L (12-78); Albumin Level 4.3 g/dl (3.5-5.0); Alkaline Phosphatase 56 U/L (38-126); Anion Gap 15.2 mEq/L (5-15); Aspartate Amino Transferase 40 U/L (17-59); Bilirubin,Direct 0.1 mg/dl (0.0-0.4); Bilirubin,Indirect 0.5 mg/dL (0.0-0.9); Bilirubin,Total 0.6 mg/dl (0.2-1.3); Bilirubin,Unconjugated 0.5 mg/dL (0.0-1.1); Blood Urea Nitrogen 15 mg/dl (9-20); Calcium 9.8 mg/dl (8.4-10.2); Carbon Dioxide 28 mmol/L (22.0-30.0); Chloride 103 mmol/L (98-107); D-Dimer 0.37 ug/mL (0.0-0.5); Estimated Glomerular Filt Rate 115 ml/min (>60); GFR (African American) 139 ML/MIN (>60); Glucose 109 mg/dl (74-100); Potassium 4.2 mmoL/L (3.5-5.1); Sodium 142 mmol/L (136-145); Total Protein,Serum 7.7 g/dl (6.3-8.2)
[2024-02-23 17:13] LABS: Free T4 (Free Thyroxine) 1.27 ng/dl (0.78-2.19)
[2024-02-23 17:29] LABS: Thyroid Stimulating Hormone 0.64 uIU/mL (0.465-4.68)
== END 2024-02-23 23:59 | disposition home or self-care (01) ==
LOC: LAB 15:33
PROVIDERS: PCP Internal Medicine; Visit Provider Nurse Practitioner
DX: R00.0 Tachycardia, unspecified (principal); R42 Dizziness and giddiness; I11.9 Hypertensive heart disease without heart failure; I25.10 Atherosclerotic heart disease of native coronary artery without angina pectoris; R60.9 Edema, unspecified; E78.5 Hyperlipidemia, unspecified; R06.00 Dyspnea, unspecified; F17.210 Nicotine dependence, cigarettes, uncomplicated
CPT/HCPCS: 36415; 80048; 80076; 84439; 84443; 85025; 85378; 93270

== ENCOUNTER 2024-02-27 12:40 | Outpatient (CLI) | payer MEDICARE, MEDICAID, SELFPAY ==
--- NOTE | 2024-02-27 12:40 | CT_ITS ---
FINAL REPORT TECHNIQUE: The patient was injected with IV contrast. Axial images were obtained of the chest by computed tomography. Precontrast images were also obtained. This study was performed with techniques to keep radiation doses as low as reasonably achievable (ALARA). Individualized dose reduction techniques using automated exposure control or adjustment of mA and/or kV according to the patient's size were employed. CLINICAL HISTORY: compare to previous CT results COMPARISON: 08/12/2021 FINDINGS: CT OF THE CHEST WITH AND WITHOUT CONTRAST: There are few small scattered mediastinal lymph nodes, improved from prior. The right paratracheal node measures up to 1.4 cm in greatest dimension. Heart size is normal. There is no pericardial or pleural effusion identified. There is extensive scarring in the right upper lobe of the lung. Calcified granuloma is noted in the posterior right upper lobe. The previously questioned small cavitary focus in the azygoesophageal recess is favored to be postinflammatory and is best seen on image 48 of series 4. There are old healed fracture deformities of some left ribs. IMPRESSION: Improve mediastinal adenopathy. Scarring in the right upper lobe and medial right lower lobe. Reviewed, Interpreted and Dictated by Azar Zayas MD Transcribed by Lucie Montoya Authenticated and [facility]
[2024-02-27] MEDS: IOPAMIDOL-370 (76%);100ML BOTTLE 75 ML IV (13:19)
[2024-02-27] MEDS: SODIUM CHLORIDE 0.9% 10ML SYR (RAD ONLY) 10 ML IV (13:19)
== END 2024-02-27 23:59 | disposition home or self-care (01) ==
LOC: RAD 12:40
PROVIDERS: PCP Internal Medicine; Visit Provider Internal Medicine
DX: R06.02 Shortness of breath (principal)
CPT/HCPCS: 71270; Q9967

== ENCOUNTER 2024-03-26 19:33 | Outpatient (CLI) | payer MEDICARE, MEDICAID, SELFPAY ==
[2024-03-26 20:23] LABS: Basophils # 0.1 K/mm3 (0-0.2); Basophils % 1.2 % (0.1-2.0); Eosinophils # 0.3 K/mm3 (0.0-0.4); Hematocrit 42.7 % (42.0-52.0); Hemoglobin 14.4 g/dL (14.1-18.0); Lymphocytes # 2.7 K/mm3 (0.7-4.5); Lymphocytes % 33.3 % (10-50); Mean Corpuscular HGB Conc 33.8 g/dL (31.8-35.4); Mean Corpuscular Hemoglobin 32.7 pg (27.0-31.2); Mean Corpuscular Volume 96.9 fl (80-94); Mean Platelet Volume 10.6 fl (7.4-10.4); Monocytes # 0.7 K/mm3 (0.1-1.0); Monocytes % 8.3 % (1.7-9.3); Neutrophils # 4.4 K/mm3 (1.8-7.8); Neutrophils % 53.2 % (37.0-80.0); Platelet Count 207 K/mm3 (142-424); Red Cell Distribution Width 13.8 % (11.5-17.5); White Blood Count 8.2 K/mm3 (4.8-10.8)
[2024-03-26 21:08] LABS: Thyroid Stimulating Hormone 2.31 uIU/mL (0.465-4.68)
[2024-03-26 21:43] LABS: Vitamin B12 468 pg/mL (239-931)
[2024-03-26 21:57] LABS: Folate 7.96 ng/mL
[2024-03-28 08:56] LABS: Transferrin 217 mg/dL (177-329)
[2024-03-28 19:46] LABS: Peripheral Smear Review Scanned Result
== END 2024-03-26 23:59 | disposition home or self-care (01) ==
LOC: LAB.DROPOF 19:34
PROVIDERS: PCP Internal Medicine; Visit Provider Internal Medicine
DX: R53.83 Other fatigue (principal); E78.5 Hyperlipidemia, unspecified; D64.9 Anemia, unspecified; Z68.29 Body mass index [BMI] 29.0-29.9, adult
CPT/HCPCS: 82607; 82746; 84443; 84466; 85025

== ENCOUNTER 2024-04-03 12:35 | Outpatient (CLI) | payer MEDICARE, MEDICAID, SELFPAY ==
--- NOTE | 2024-04-03 | CA_ITS ---
APPROVED REPORT Exam: Exercise Treadmill Technologist: Yvonne Davis, Ht: 6 ft 0 in Wt: 216 lbs BSA: 2.20 m2 HR: 87 bpm BP: 129/78 mmHg Medical History Medications: Aspirin,,,,, Gabapentin,,,,, Metoprolol Succinate,,,,, Albuterol,,,,, Tramadol,,,,, CetIRIZINE,,,,, RoSUVASTATIN,,,,, Lisinopril HCTZ,,,,, StIOLoto Respimat,,,,, Cardiac Risk Factors: Hyperlipidemia, Smoking Stress Test Details Test: Modified Alba HR Resting HR: 111 bpm Max Heart Rate (APMHR): 160 bpm Max HR Achieved: 142 bpm Target HR (85% APMHR): 136 bpm % of APMHR: 89 Recovery HR: 93 bpm HR response to stress: Normal HR response to stress BP Resting BP: 128.0/74 mmHg Max BP: 129/78 mmHg Recovery BP: 118.0/75.0 mmHg BP response to stress: Blunted blood pressure response to stress. ECG Resting ECG: NSR Stress EC.[address] depression Arrhythmia: None Recovery ECG: Return to baseline within 3 minutes of recovery Recovery Arrhythmia: None Clinical Exercise duration: 03:09 min Highest Stage Achieved: Exercise capacity: 2.3 METs Overall Exercise Capacity for Age: Poor Stress ECG Conclusion MODIFIED ALBA PROTOCOL. Pt experinced fatiguie. 2.3 METS. Ectopy: No arrhythmias noted. ST changes: 0.[address] depression. CONCLUSION Poor exercise capacity. No evidence of ischemia on EKG at peak stress. There is blunted BP response to exercise. Test Summary REST . . . . . . . Sitting REST . . . . . . . Sitting REST . . . . . . . Protocol changed to Modified Alba REST . . . . . . . Standing REST 02:50 0.0 0.0 111 . 128/ 74 . . Stage 1 01:00 0.0 1.7 112 . . . . Stage 1 02:00 0.0 1.7 123 . . . . Stage 1 03:00 0.0 1.7 126 . . . . Stage 2 00:09 5.0 0.0 122 . . . Stop exercise at 03:09 RECOVERY 01:00 0.0 0.0 96 . . . . RECOVERY 02:00 0.0 0.0 79 . . . . RECOVERY 03:00 0.0 0.0 85 . . . . RECOVERY 04:00 0.0 0.0 80 . 118/ 75 . . RECOVERY 05:00 0.0 0.0 83 . 120/ 76 . . RECOVERY 06:00 0.0 0.0 84 . 120/ 76 . . RECOVERY 06:12 0.0 0.0 87 . 120/ 76 . . Electronically signed by : Jessica Carson MD 04/18/2024 00:42:39
--- NOTE | 2024-04-03 12:35 | CA_ITS ---
APPROVED REPORT EXAM: Comprehensive 2D, Doppler, and color-flow Echocardiogram Dredging Inspector: Violette Terrazas RDCS Ht: 6 ft 0 in Wt: 216lbs BSA: 2.20 BP: 132/67 mmHg Indications: Shortness of Breath R06.02 Hypertension I10 Medical History Medical History: Smoking, SOB Echo Procedure The patient underwent an Exercise Stress Test using the Jake Protocol. Blood pressure, heart rate, and EKG were monitored. An Echocardiogram was performed by geology technician in four stages in quad fashion. At peak stress, four selected images were obtained and placed side by side with resting images for comparison. Stress Test Details Test: Exercise stress testing was performed using a Jake protocol. HR Resting HR: 111 bpm Max Heart Rate (APMHR): 160 bpm Max HR Achieved: 142 bpm Target HR (85% APMHR): 136 bpm % of APMHR: 89 Recovery HR: 104 bpm HR response to stress: Normal HR response to stress BP Resting BP: 128/74 mmHg Max BP: 129/78 mmHg BP response to stress: Blunted blood pressure response to stress. ECG Resting ECG: NSR Stress ECG: < 0.[address] depression Arrhythmia: None Recovery ECG: Return to baseline within 3 minutes of recovery Clinical Exercise duration: 3.09 min Exercise capacity: 2.3 METs Overall Exercise Capacity for Age: Poor Echo Findings The Pre-Stress Echocardiogram showed global left ventricular contractility with an estimated Ejection Fraction of about 60%. There are no regional wall motion abnormalities noted at rest. The Post-Stress Echocardiogram showed global left ventricular contractility with an estimated Ejection Fraction of about 65-70%. No obvious new regional wall motion abnormalities at peak stress. Other Information Study Quality: Technically Difficult. Technically limited study due to poor endocardial definition. Conclusion Technically difficult study due to poor acoustic windows and difficult to visualize regional wall motion at peak stress. Poor exercise capacity compared to age and sex matched peers. No obvious regional wall motion abnormalities at peak stress. However, this study is considered overall nondiagnostic and limited in the setting of technically difficult imaging. Further evaluation with alternative imaging modality (e.g. exercise nuclear stress testing or CCTA) is recommended, if clinically feasible and indicated. Electronically signed by : Jessica Carson MD 04/08/2024 16:58:03
== END 2024-04-03 23:59 | disposition home or self-care (01) ==
LOC: RT 12:35
PROVIDERS: PCP Internal Medicine; Visit Provider Nurse Practitioner
DX: R06.00 Dyspnea, unspecified (principal); I11.9 Hypertensive heart disease without heart failure; R42 Dizziness and giddiness; R00.0 Tachycardia, unspecified; F17.210 Nicotine dependence, cigarettes, uncomplicated
CPT/HCPCS: 93017; 93018; 93350

== ENCOUNTER 2024-06-06 13:41 | Outpatient (CLI) | payer MEDICARE, MEDICAID, SELFPAY ==
--- NOTE | 2024-06-06 14:00 | MR_ITS ---
FINAL REPORT CLINICAL HISTORY: soft tissue mass on US, marker placed at area, lateral and distal part of leg COMPARISON: Ultrasound dated 12/03/2021 FINDINGS: MRI LEFT LOWER EXTREMITY WITHOUT AND WITH CONTRAST Multiplanar MR imaging of the left lower extremity was performed with and without contrast. There is magnetic susceptibility artifact in the anterior aspect of the distal tibia. A skin marker was placed over the site of the clinical abnormality. There is abnormal, corresponding, lobular abnormal signal measuring 3.5 cm in AP dimension and up to 6.0 cm in craniocaudal dimension. On the coronal images, this appears to be in the subcutaneous soft tissues, contiguous with the peroneus longus muscle. This is best seen on coronal images 16 through 17 of series 36.1. There is heterogeneous enhancement in this region seen on axial image 18 of series 39.2. No underlying marrow edema is seen. IMPRESSION: 3.5 x 6.0 cm somewhat ill-defined lobular enhancing focus lateral to the peroneus longus muscle. This is apparently confined to the subcutaneous soft tissues but is contiguous with the muscle fascia. Exact etiology is unclear. This would be easily amenable to tissue sampling. Reviewed, Interpreted and Dictated by Azar Zayas MD Transcribed by Lilly Hope Authenticated and [facility]
[2024-06-06 14:07] LABS: Blood Urea Nitrogen 13 mg/dl (9-20); Estimated Glomerular Filt Rate 99 ml/min (>60); GFR (African American) 119 ML/MIN (>60)
[2024-06-06] MEDS: SODIUM CHLORIDE 0.9% 10ML SYR (RAD ONLY) 10 ML IV (16:00)
[2024-06-06] MEDS: GADOTERIDOL INJ 20ML SYRINGE 20 ML IV (16:00)
== END 2024-06-06 23:59 | disposition home or self-care (01) ==
LOC: RAD 13:42
PROVIDERS: PCP Internal Medicine; Visit Provider Internal Medicine
DX: S89.92XD Unspecified injury of left lower leg, subsequent encounter (principal)
CPT/HCPCS: 36415; 73720; 82565; 84520; A9576

== ENCOUNTER 2024-06-13 14:57 | Outpatient (RCR) | payer MEDICARE, MEDICAID, SELFPAY ==
--- NOTE | 2024-06-13 18:24 | HMH.PTOPEV ---
PT Outpatient Evaluation Rehab PT Outpatient Evaluation Start: 06/13/24 17:57 Freq: Status: Active Protocol: Document 06/13/24 17:58 JEROMY (Rec: 06/13/24 18:23 JEROMY [id number]) E-signed By Dylan Turner, PT Outpatient Therapy Subjective History Subjective History Patient is a 58 year old male presenting to outpatient PT with reports of chronic LS pain with associated LLE radicular symptoms. Symptoms of insidious onset. No recent imaging to report. Comorbidities include hx of HL and HTN. New diagnosis of cancer in past 12 No months? Chief Complaint Pain,Stiff,Paresthesia Symptom Type Ache,Sharp,Numbness,Tingling Symptoms Aggravated By Standing,Bending/Stooping, Physical Activity,Lifting Prior Functional Limitations None Current Functional Limitations Lifting,Housework,Standing, Squatting,Walking Symptom Description Constant but Variable Level of pain today (0-10) 5 Pain scale - at its best (0-10) 4 Pain scale - at its worst (0-10) 9 Lumbopelvic Eval Posture Thoracic Spine Posture Standing Position Increased Kyphosis Lumbar Spine Posture Standing Position Increased Lordosis,Decreased Lordosis Palapation tenderness left lumbar spinal tenderness Yes: L3-S1 3/4 Lumbar/Sacral Palpation Findings Tenderness Accessory Movement L3 left L4 left L5 left S1 left Range of Motion Lumbar Spine Active Flexion Range of 64 Motion (degrees) Lumbar Spine Active Extension Range of 8 Motion (degrees) Left Lumbar Spine Lateral Flexion Active 13 Range of Motion (degrees) Right Lumbar Spine Lateral Flexion 17 Active Range of Motion (degrees) Lumbar Spine ROM Limitations Soft Tissue Tightness,Bony Restriction Manual Muscle Test Bilateral Knee Extension Strength Grade 5 Normal Knee Flexion Strength Grade 5 Normal Hip Flexion Strength Grade 5 Normal Extensor Hallucis Longus Strength Grade 5 Normal Ankle Dorsiflexion Strength Grade 5 Normal Gastronemius/Soleus Strength Grade 5 Normal Special Tests Hip Hugo ([place]) Test Positive Left,Positive Right Hip Yesenia Test Positive Left,Positive Right Hip Piriformis Test Positive Left,Positive Right Fareed Test Positive Sacroiliac Joint Distraction Test Negative Left,Negative Right Lumbar Spine Ordonez Test Negative Left,Negative Right Lumbar Long [place] Distraction Test/Manual Positive Traction Outpatient Therapy Assessment Impairments Problems/Impairmments Palpation Tenderness,Impaired Range of Motion,Impaired Strength,Impaired Walking, Impaired Standing,Impaired Sitting,Impaired Lifting, Impaired Household Care, Impaired Bending,Subjective C/ O Pain Short Term Goals Number of Weeks 2 Decrease Subjective C/O Pain Yes: /10 at worst Patient to be Ind w/ HEP Yes Jail Goals Number of Weeks 4-6 Decreased Palpation Tenderness Yes: 1/ Increase Range of Motion Yes: WNL Increase Ability to Walk Yes: 20 min without difficulty Increase Ability to Stand Yes: Improve Ability For Household Care Yes Improve Oswestry Score Yes: mild disability Decrease Subjective C/O Pain Yes: 10 at worst Outpatient Therapy Plan of Care Treatment Plan May Include Therapeutic Exercise Including Home Yes Exercise Program Manual Therapy Techniques Yes Neuromuscular Re-education Yes Therapeutic Activities to Return to Yes Previous Functional/Work Level Gait Training Yes ADL/Self Care Education Yes Mechanical Traction Yes Dry Needling Yes Thermal Modalities Yes Electrical Stimulation Yes Ultrasound/Phonophoresis Yes Orthotics/Bracing/Splinting Yes Vasopneumatic Compression Pump Yes Massage Yes Manual Lymphatic Drainage Yes Eval/Re-Eval Yes Frequency Times per week 2-3 Duration Number of Weeks 4-6 Addendums This patient is a candidate for social No or vocational rehab? Patient/Guardian verbally acknowledges Yes understanding of treatment program and consents to further treatment? Patient/Guardian verbally acknowledges Yes understanding of diagnosis, prognosis and goals for treatment? Eval Complexity PT Charges 80319 - Moderate Complexity Shoulder/Elbow Eval Shoulder Objective Measurements Elbow Objective Measurements PHYSICIAN CERTIFICATION: I certify the specified therapy services for Earl Bella are required, authorized, and reviewed every 30 days.
== END 2024-06-13 14:59 | disposition home or self-care (01) ==
LOC: PT 14:57
PROVIDERS: Visit Provider Internal Medicine
DX: M47.816 Spondylosis without myelopathy or radiculopathy, lumbar region (principal); M48.061 Spinal stenosis, lumbar region without neurogenic claudication; M54.42 Lumbago with sciatica, left side; G89.29 Other chronic pain
CPT/HCPCS: 97163